=== PATIENT | female | born 1945 | race Two or more races ===

== ENCOUNTER 2017-01-12 00:08 | Inpatient (IN) | payer MEDICARE, OTHER ==
[~2017-01-12] VITALS: Ht 165.1 cm; Wt 65.8 kg
[2017-01-12] MEDS ORDERED: IV NORMAL SALINE 1000 ML BAG IV ONE ×3 (00:30→05:45)
[2017-01-12] MEDS ORDERED: ASPI-605 PO (00:37)
[2017-01-12] MEDS ORDERED: FOLI1TAB16 PO (00:37)
[2017-01-12] MEDS ORDERED: ERGO500040 PO (00:37)
[2017-01-12] MEDS ORDERED: SPIR25TA4 PO (00:37)
[2017-01-12] MEDS ORDERED: LOSA1TAB39 PO (00:37)
[2017-01-12] MEDS ORDERED: metoprolol PO (00:37)
[2017-01-12] MEDS ORDERED: CLOP75TA33 PO (00:37)
[2017-01-12] MEDS ORDERED: megestrol PO (00:37)
[2017-01-12] MEDS ORDERED: DIGO125T PO (00:37)
[2017-01-12] MEDS ORDERED: POTA10CA43 PO (00:37)
[2017-01-12] MEDS ORDERED: FURO20TA4 PO (00:37)
[2017-01-12 01:19] LABS: ALANINE AMINOTRANSFERASE 35 U/L (14-59); ALKALINE PHOSPHATASE 64 U/L (50-136); ASPARTATE AMINOTRANSFERASE 34 U/L (15-37); BILIRUBIN,DIRECT 0.2 mg/dL (0.0-0.2); BILIRUBIN,TOTAL 0.6 mg/dL (0.2-1.0); CARBON DIOXIDE 20 mmol/L (21-32); CHLORIDE 103 mmol/L (98-107); GLUCOSE 149 mg/dL (74-106); LIPASE 92 U/L (73-393); POTASSIUM 3.2 mmol/L (3.5-5.1); TOTAL PROTEIN, SERUM 7.3 g/dL (6.4-8.2); UREA NITROGEN, BLOOD 20 mg/dL (7-18)
[2017-01-12] MEDS ORDERED: PIPERACILLIN SODIUM/TAZOBACTAM 3.375 G in IV DEXTROSE 5% 50 ML IV ONE (01:45)
[2017-01-12 01:53] LABS: *BLOOD, URINE Trace-lysed (NEGATIVE); *COLOR,URINE YELLOW (YELLOW); *KETONES,URINE TRACE (NEGATIVE); *PROTEIN,URINE NEGATIVE (NEGATIVE); *UROBILINOGEN,URINE 0.2 E.U./dl (NORMAL); LEUKOCYTE ESTERASE ,URINE TRACE (NEGATIVE); NITRITE, URINE NEGATIVE (NEGATIVE); UGLUCOSE NEGATIVE (NEGATIVE)
[2017-01-12] MEDS ORDERED: PIPERACILLIN/TAZOBACTAM/D5W 50 ML IV ONE (01:59)
[2017-01-12 02:09] LABS: *BILIRUBIN,URIN NEGATIVE (NEGATIVE); *CLARITY,URINE HAZY (CLEAR)
[2017-01-12 02:10] LABS: BACTERIA,URINE FEW /HPF (NONE SEEN); MUCUS,URINE MODERATE /LPF (0-FEW); SQUAMOUS EPITHELIAL CELL,UR FEW /HPF (NONE SEEN)
[2017-01-12 02:34] LABS: WHITE BLOOD COUNT (AUTO) 6.3 K/UL (4.0-11.2)
[2017-01-12 02:35] LABS: BASOPHILS % (AUTO) 0.1 % (0.0-2.0); EOSINOPHILS % (AUTO) 0.5 % (0.0-7.0); HEMATOCRIT 30.9 % (37-47); HEMOGLOBIN 10.4 G/DL (12.0-16.0); LYMPHOCYTES # (AUTO) 0.2 K/UL (0.8-4.8); LYMPHOCYTES % (AUTO) 3.7 % (20.5-51.5); MEAN CORPUSCULAR HEMOGLOBIN 27.1 UUG (27.0-31.0); MEAN CORPUSCULAR HGB CONC 34 g/dL (32.0-37.0); MEAN CORPUSCULAR VOLUME 80.8 FL (81.0-99.0); MONOCYTES % (AUTO) 5.6 % (0.0-11.0); NEUTROPHILS # (AUTO) 5.7 K/UL (1.8-8.9); NEUTROPHILS % (AUTO) 90.1 % (38.5-71.5); PLATELET COUNT (AUTO) 129 K/UL (150-450); RED BLOOD CELL COUNT(AUTO) 3.83 MIL/UL (4.2-5.4)
[2017-01-12 02:36] LABS: MONOCYTES # (AUTO) 0.4 K/UL (0.1-1.30)
--- NOTE | 2017-01-12 03:10 | NUR ---
BOLUS 2 LITER NS STARTED.
[2017-01-12] MEDS ORDERED: ONDANSETRON 4 MG/2 ML VIAL IV ONE (03:45)
[2017-01-12] MEDS ORDERED: ONDANSETRON 4 MG/2 ML VIAL ONE (03:46)
[2017-01-12 03:50] LABS: THYROID STIMULATING HORMONE 0.967 mIU/mL (0.358-3.740)
[2017-01-12 04:00] VITALS: BP 102/61
--- NOTE | 2017-01-12 04:00 | NUR ---
DR AGUILAR CALLED BACK
--- NOTE | 2017-01-12 04:05 | NUR ---
Call placed to [facility] speaking with Christina Murillo
--- NOTE | 2017-01-12 04:08 | NUR ---
DR. AGUILAR RETURNED CALL.
--- NOTE | 2017-01-12 04:20 | NUR ---
PATIENT RECEIVED TOTAL OF 1 LITER OF NS. ENDORSED TO FLOOR NURSE TO COMPLETE BOLUS.
--- NOTE | 2017-01-12 04:42 | NUR ---
Pt. admitted to [facility] , under care of Dr. LAUREN HUA Belongs List completed. HAND OFF GIVEN TO ESPERANZA WEBER.
[2017-01-12 04:45] VITALS: BP 103/61
--- NOTE | 2017-01-12 04:45 | NUR ---
RECEIVED PT FROM ER VIA [facility]UL[facility] AND GOT REPORT FROM [facility]/RN;ACCOMPANIED BY PT'S SON(LINA);PT'S A/A/O X4 DENIED OF PAIN OR ANY DISCOMFORT,WALKED TO BATHROOM FOR URINATION AT THIS TIME.INITIAL ASSESSMENT'S DONE.VANDANA/CHILD DEVELOPMENT ASSISTANT CALLED MD FOR ADMISSION ORDER.KEPT COMFORT TO PT.TELEMETRY'S SR 88/MIN NOTED.
[2017-01-12] MEDS ORDERED: LEVOFLOXACIN 750MG/D5W 150 ML IV SCH (05:45)
[2017-01-12] MEDS ORDERED: MORPHINE SULFATE 2 MG/1 ML DISP.SYRIN IV PRN (05:45)
[2017-01-12] MEDS ORDERED: ONDANSETRON 4 MG/2 ML VIAL IV PRN (05:45)
--- NOTE | 2017-01-12 06:30 | NUR ---
PER RT WHO'S ABLE TO SPEAK THE SAME LANGUAGE TO PT;EXPLAINED TO PT FOR 15 MINUTES IN ORDER TO DO ABG;PT REFUSED AND STATED THAT"I'M TIRED,PLEASE GIVE ME A BREAK.DO IT LATER.LET'S ME SLEEP".INCLUDING SCRIPT SUPERVISOR CAME AND UNABLE TO DO IT AT THIS TIME.ALL LAB'LL BE DONE AT 9AM;WILL ENDORSE TO THE NEXT SHIFT TO FOLLOW UP WITH EKG NOTED.
[2017-01-12] MEDS ORDERED: LEVOFLOXACIN 750MG/D5W 150 ML IV ONE (06:49)
[2017-01-12 07:21] LABS: IRON, SERUM 15 ug/dL (50-175)
--- NOTE | 2017-01-12 07:30 | NUR ---
PT'S ON LEVAQUIN 750 MG IVPB AT THIS TIME;TOLERATED WELL NOTED,WILL ENDORSE TO AM NURSE TO FOLLOW UP WITH TREATMENTS NOTED.PT'S COMFORTABLE ON BED;DENIED OF PAIN,UNLABORED BREATHING.NOTED.TELEMETRY'S SR 84/MIN AT THIS TIME.
[2017-01-12 07:38] VITALS: BP 98/50
[2017-01-12] MEDS ORDERED: POTASSIUM CHLORIDE 50 ML IV SCH (08:00)
--- NOTE | 2017-01-12 08:00 | NUR ---
REFUSED ALL TX WILL CALL FAMILY. NO SIGNS OF PAIN OR DISTRESS
[2017-01-12] MEDS: ASPIRIN 81 MG TAB.CHEW PO SCH (08:30)
[2017-01-12] MEDS: CLOPIDOGREL 75 MG TABLET PO SCH (08:30)
[2017-01-12] MEDS ORDERED: PANTOPRAZOLE SODIUM 40 MG VIAL IV SCH (09:00)
[2017-01-12] MEDS ORDERED: POTASSIUM CHLORIDE 20 MEQ TAB.PRT.SR PO ONE (10:00)
[2017-01-12 11:14] VITALS: BP 118/63
[2017-01-12] MEDS ORDERED: FAMOTIDINE. 20 MG/2 ML VIAL IV SCH (11:30)
--- NOTE | 2017-01-12 12:00 | NUR ---
SON IN VERY SUPPORTIVE WITH CARE SR ON MONITOR. SEEN BY DR SPEAR WITH ORDERS. AWAITING RECREATION ADVISER
[2017-01-12 15:08] VITALS: BP 123/70
[2017-01-12] MEDS ORDERED: ASPIRIN EC 81 MG TABLET.DR PO SCH (16:00)
[2017-01-12] MEDS ORDERED: POTASSIUM CHLORIDE 10 MEQ CAPSULE.SA PO SCH (16:00)
[2017-01-12] MEDS ORDERED: SPIRONOLACTONE 25 MG TABLET PO SCH ×2 (16:00→21:00)
[2017-01-12] MEDS ORDERED: Medication Not On Formulary EA (Losartan/Hydrochlorothiazide (Losartan-Hctz 100-25 Mg Ta PO SCH (16:00)
[2017-01-12] MEDS ORDERED: CLOPIDOGREL 75 MG TABLET PO SCH (16:00)
[2017-01-12] MEDS: FOLIC ACID 1 MG TABLET PO SCH (16:00)
--- NOTE | 2017-01-12 16:41 | NUR ---
NO SIGNS OF DISTRESS, RESTING MOST OF THE TIME. NO REACTION FROM IV LEVAQUIN. SR ON MONITOR AFEBRILE
[2017-01-12] MEDS ORDERED: METOPROLOL TARTRATE 50 MG TABLET PO SCH (17:00)
[2017-01-12] MEDS: FUROSEMIDE 20 MG TABLET PO SCH (17:15)
[2017-01-12] MEDS: HYDROCHLOROTHIAZIDE 25 MG TABLET PO SCH (17:16)
[2017-01-12] MEDS: LOSARTAN POTASSIUM 50 MG TABLET PO SCH (17:16)
[2017-01-12] MEDS: DIGOXIN 125 MCG TABLET PO SCH (17:16)
[2017-01-12] MEDS: POTASSIUM CHLORIDE 8 MEQ CAPSULE.SA PO SCH (17:18)
--- NOTE | 2017-01-12 18:57 | NUR ---
SEEN BY DR PENNINGTON SEE NOTES
[2017-01-12 19:30] VITALS: BP 131/82
[2017-01-12] MEDS: ACETAMINOPHEN 325 MG TABLET PO PRN (20:01)
[2017-01-12] MEDS ORDERED: SIMVASTATIN 20 MG TABLET PO SCH (21:00)
[2017-01-13 00:10] VITALS: BP 133/67
[2017-01-13] MEDS ORDERED: LEVOFLOXACIN 750 MG TABLET ONE (05:42)
[2017-01-13] MEDS ORDERED: LEVOFLOXACIN 750 MG TABLET PO SCH (05:45)
[2017-01-13 05:46] VITALS: BP 110/76
[2017-01-13 06:48] LABS: BASOPHILS % (AUTO) 0.5 % (0.0-2.0); EOSINOPHILS # (AUTO) 0.1 K/uL (0.0-0.7); EOSINOPHILS % (AUTO) 1.8 % (0.0-7.0); HEMOGLOBIN 9.9 G/DL (12.0-16.0); LYMPHOCYTES # (AUTO) 0.4 K/UL (0.8-4.8); LYMPHOCYTES % (AUTO) 12.3 % (20.5-51.5); MEAN CORPUSCULAR HEMOGLOBIN 26.6 UUG (27.0-31.0); MEAN CORPUSCULAR HGB CONC 33 g/dL (32.0-37.0); MEAN CORPUSCULAR VOLUME 80.8 FL (81.0-99.0); MONOCYTES # (AUTO) 0.4 K/UL (0.1-1.30); MONOCYTES % (AUTO) 10.8 % (0.0-11.0); NEUTROPHILS # (AUTO) 2.7 K/UL (1.8-8.9); NEUTROPHILS % (AUTO) 74.6 % (38.5-71.5); PLATELET COUNT (AUTO) 109 K/UL (150-450); RED BLOOD CELL COUNT(AUTO) 3.72 MIL/UL (4.2-5.4)
[2017-01-13 06:53] LABS: WHITE BLOOD COUNT (AUTO) 3.6 K/UL (4.0-11.2)
[2017-01-13 07:10] LABS: ALANINE AMINOTRANSFERASE 26 U/L (14-59); ALKALINE PHOSPHATASE 52 U/L (50-136); ASPARTATE AMINOTRANSFERASE 24 U/L (15-37); BILIRUBIN,TOTAL 0.3 mg/dL (0.2-1.0); CARBON DIOXIDE 23 mmol/L (21-32); CHLORIDE 105 mmol/L (98-107); CREATININE 0.8 mg/dL (0.6-1.3); GLUCOSE 103 mg/dL (74-106); POTASSIUM 3.6 mmol/L (3.5-5.1); TOTAL PROTEIN, SERUM 6.9 g/dL (6.4-8.2); UREA NITROGEN, BLOOD 11 mg/dL (7-18)
[2017-01-13 07:42] VITALS: BP 120/77
[2017-01-13] MEDS: ACETAMINOPHEN 325 MG TABLET PO PRN (07:48)
[2017-01-13] MEDS: LOSARTAN POTASSIUM 50 MG TABLET PO SCH (07:49)
[2017-01-13] MEDS: DIGOXIN 125 MCG TABLET PO SCH (07:50)
[2017-01-13] MEDS: FUROSEMIDE 20 MG TABLET PO SCH (07:51)
[2017-01-13] MEDS: POTASSIUM CHLORIDE 8 MEQ CAPSULE.SA PO SCH (07:51)
[2017-01-13] MEDS: HYDROCHLOROTHIAZIDE 25 MG TABLET PO SCH (07:51)
[2017-01-13] MEDS: ASPIRIN 81 MG TAB.CHEW PO SCH (07:53)
[2017-01-13] MEDS: FOLIC ACID 1 MG TABLET PO SCH (07:53)
[2017-01-13] MEDS: CLOPIDOGREL 75 MG TABLET PO SCH (07:53)
[2017-01-13] MEDS ORDERED: CARVEDILOL 6.25 MG TABLET PO SCH (08:00)
--- NOTE | 2017-01-13 08:00 | NUR ---
DR SPEAR IN MADE AWARE OF TEMP 100.8 , SPOKE WITH SON REGARDING PLAN OF CARE PENDING DISCHARGE AWAITING BLOOD CULTURE
[2017-01-13] MEDS ORDERED: FAMOTIDINE 20 MG TABLET PO SCH (09:00)
[2017-01-13] MEDS ORDERED: SPIRONOLACTONE 25 MG TABLET PO SCH (09:00)
[2017-01-13] MEDS ORDERED: LEVO750T21 PO (10:17)
--- NOTE | 2017-01-13 11:31 | NUR ---
RESTING COMFORTABLY IN BED NO SIGNS OF DISTRESS. AFEBRILE
[2017-01-13 12:00] VITALS: BP 88/45
--- NOTE | 2017-01-13 14:20 | NUR ---
DISCHARGE AND FOLLOW-UP INSTRUCTION GIVEN TO FAMILY. PT STABLE
--- NOTE | 2017-01-13 14:20 | NUR ---
DR SPEAR IN AND DISCHARGE PT.
[2017-01-14] MEDS ORDERED: LEVOFLOXACIN 750 MG TABLET PO SCH (09:00)
[2017-01-18] MEDS ORDERED: ERGOCALCIFEROL 50,000 UNIT CAPSULE PO SCH (09:00)
== END 2017-01-13 14:22 | disposition home or self-care (01) | DRG 280 ==
LOC: ER 00:12 → TELE-TD 02:47 → TELE 19:29
PROVIDERS: ADMIT Internal Medicine; ATTEND Internal Medicine
DX: I21.4 Non-ST elevation (NSTEMI) myocardial infarction (principal); D61.810 Antineoplastic chemotherapy induced pancytopenia; C81.90 Hodgkin lymphoma, unspecified, unspecified site; I11.0 Hypertensive heart disease with heart failure; I50.42 Chronic combined systolic (congestive) and diastolic (congestive) heart failure; I25.10 Atherosclerotic heart disease of native coronary artery without angina pectoris; Z95.5 Presence of coronary angioplasty implant and graft; Z79.82 Long term (current) use of aspirin; Z79.899 Other long term (current) drug therapy; E87.6 Hypokalemia; E78.5 Hyperlipidemia, unspecified; I25.5 Ischemic cardiomyopathy; D63.8 Anemia in other chronic diseases classified elsewhere; R50.2 Drug induced fever; T45.1X5A Adverse effect of antineoplastic and immunosuppressive drugs, initial encounter; Y92.89 Other specified places as the place of occurrence of the external cause; Z85.72 Personal history of non-Hodgkin lymphomas
CPT/HCPCS: 36415; 70030-TC; 71010; 83550; 83605; 83690; 84443; 85025; 85610; 85730; 87040; 87086; 93005; 93307; A4663; J1956; J2405; J2543; J3480; J3490; J7030